=== PATIENT | female | born 1950 | race Two or more races ===

== ENCOUNTER 2024-10-31 15:05 | Emergency (ER) | payer OTHER, SELFPAY ==
--- NOTE | 2024-10-31 15:20 | PD.EDFMALE ---
ED Female Urogenital RME/HPI General Chief complaint: Weakness Stated complaint: WEAKNESS Time Seen by Provider: 10/31/24 15:16 Source: patient and EMS Arrival date/time: 10/31/24 15:05 Limitations: no limitations RME / HPI RME / HPI Narrative: 73-year-old female with a history of diabetes and hypothyroidism was brought in by EMS for 2-week history of generalized weakness and a 2-week history of dysuria. She denies any abdominal pain, nausea, vomiting. No diarrhea. No fevers or chills. No unilateral weakness or vision changes. No shortness of breath. No fevers or chills. No lower leg edema. She has no other acute complaints. Related Data Home Medications ?Medication ?Instructions ?Recorded ?Confirmed Levothyroxine * (SYNTHROID *) PO QDAY #0 tabs 11/07/16 metformin 500 mg tablet PO BIDAC #0 tabs 11/07/16 (Glucophage) Previous Rx's ?Medication ?Instructions ?Recorded cephalexin 500 mg capsule 500 mg PO TID 7 days #21 caps 10/31/24 Allergies Allergy/AdvReac Type Severity Reaction Status Date / Time Penicillins Allergy Unknown Verified 11/24/16 13:17 Review of Systems Review of Systems Systems Reviewed: All systems reviewed, normal except as documented ED Exam General Limitations: Present no limitations General appearance: Present alert and in no apparent distress Head Head exam: Present atraumatic Eye Eye exam: Present normal appearance, PERRL and EOMI ENT ENT exam: Present normal exam, normal oropharynx and mucous membranes moist Neck Neck exam: Present normal inspection, full ROM and trachea midline Chest Chest inspection: Present normal inspection and symmetric chest wall rise Respiratory Respiratory exam: Present normal lung sounds bilaterally Cardiovascular Cardiovascular exam: Present regular rate, normal rhythm and normal heart sounds Abdominal Exam Abdominal exam: Present soft and normal bowel sounds Extremities Exam Extremities exam: Present normal inspection and full ROM Back Exam Back exam: Present normal inspection and full ROM Neurological Exam Neurological exam: Present alert and oriented X3 Psychiatric Psychiatric exam: Present normal affect and normal mood Skin Skin exam: Present warm, dry, intact and normal color Course Quality Measures none Orders Category Date Time Status Beta Hydroxybutyrate Stat Lab 10/31/24 19:15 Completed CBC Stat Lab 10/31/24 16:16 Completed CMP [Comprehensive Metabolic Panel] Stat Lab 10/31/24 16:16 Completed HCG,Qualitative Serum Stat Lab 10/31/24 16:16 Completed Ketone [Beta Hydroxybutyrate] Stat Lab 10/31/24 16:16 Completed Lipase Stat Lab 10/31/24 16:16 Completed UA, C/S IF [Urinalysis, C/S if Indicated] Stat Lab 10/31/24 16:20 Completed Urine Culture Stat Lab 10/31/24 16:20 Received Potassium Chloride [K-Dur] Med 10/31/24 17:07 Discontinued 20 meq PO X1 ONE SODIUM CHLORIDE 0.9% (Popper) [Ns 0.9% (P)] 50 ml Med 10/31/24 19:29 Discontinued IV .STK-MED Sodium Chloride 0.9% 1000 ml [Ns] 1,000 ml Med 10/31/24 15:17 Discontinued IV 999 mls/hr cefTRIAXone [Rocephin] 1 gm Med 10/31/24 18:34 Discontinued SODIUM CHLORIDE 0.9% (Popper) [Ns 0.9% (P)] 50 ml IV X1 cefTRIAXone/D5w 1gm IV premix [Rocephin/D5w 1gm IV Med 10/31/24 19:32 Discontinued premix] 1 gm in 50 ml IV X1 Vital Signs Vital signs: Vital Signs Temperature 98.4 F 10/31/24 15:30 Pulse Rate 70 10/31/24 15:30 Blood Pressure 117/74 10/31/24 15:30 Pulse Oximetry (%) 93 L 10/31/24 15:30 Oxygen Delivery Method Room Air 10/31/24 15:30 Urogenital - Female MDM Narrative MDM Narrative:: 73-year-old female with a history of diabetes and hypothyroidism was brought in by EMS for 2-week history of generalized weakness and a 2-week history of dysuria. She denies any abdominal pain, nausea, vomiting. No diarrhea. No fevers or chills. No unilateral weakness or vision changes. No shortness of breath. No fevers or chills. No lower leg edema. She has no other acute complaints. On exam, patient is nontoxic-appearing no visible signs stress. Vital signs are stable. She has no abdominal pain, nausea, vomiting. Abdomen is soft and supple. She has no CVA tenderness. Workup was initiated has no leukocytosis. She has hemoglobin 11 hematocrit 33.1. Her sodium is 132, potassium 3.2. Her bicarb is 25.2. Creatinine 1.1. Glucose 194. However her initial beta hydroxy butyrate was 0.6. Patient received a 1 L bolus of normal saline in addition to ceftriaxone. Beta hydroxybutyrate was repeated and is now 1.0. Concerns at this is climbing early DKA. Hospitalist screener was contacted for admission consideration. Patient was seen by hospitalist team. We do not believe she is in DKA. Her beta-hydroxybutyrate may be elevated due to poor oral and food intake. Patient was reevaluated and remains nontoxic-appearing and in no visible signs stress. Vital signs remained stable throughout the ER course. Patient will be discharged in the time. She is agreeable to this. She will be discharged with a prescription of cephalexin. She agrees to increase oral hydration. Use the provided antibiotic as prescribed. Return to the emergency room at anytime for any worsening or emergent changes. Patient data External records reviewed:: EMS form Clinical information provided by:: patient and EMS Social determinants that could affect healthcare access:: none Patient has the following chronic illnesses:: Diabetes, hypothyroidism How is presenting disease/condition affected by chronic disease/condition?: exacerbated by Evaluation data The following diagnostics were reviewed and interpreted by me:: lab results Lab and/or radiology exams considered but not ordered:: n/a Interpretation Summary: Concerns for possible early DKA with her elevated beta hydroxybutyrate. UTI is present. Medications / Prescriptions Medications or Prescriptions considered but not ordered:: n/a Medication administrations:: Medication Administration History Discontinued Medications Sodium Chloride (Ns) 1,000 mls @ 999 mls/hr IV .Q1H1M ONE Stop: 10/31/24 16:17 Last Infusion: 10/31/24 18:44 Dose: Infused Documented By: Admin: 10/31/24 17:03 Dose: 999 mls/hr Documented By: ARF Ceftriaxone Sodium 1 gm/ (Sodium Chloride) 50 mls @ 100 mls/hr IV X1 ONE Stop: 10/31/24 19:03 Last Admin: 10/31/24 19:34 Dose: Not Given Documented By: RODY Non-Admin Reason: Duplicate Medication on eMAR Sodium Chloride (Ns 0.9% (P)) Confirm Administered Dose 50 mls @ ud IV .STK-MED ONE Stop: 10/31/24 19:30 Last Admin: 10/31/24 19:49 Dose: Not Given Documented By: RODY Non-Admin Reason: Discontinued Ceftriaxone Sodium/Dextrose (Rocephin/D5w 1gm Iv Premix) 1 gm in 50 mls @ 100 mls/hr IV X1 ONE Stop: 10/31/24 20:01 Last Infusion: 10/31/24 20:16 Dose: Infused Documented By: Admin: 10/31/24 19:46 Dose: 100 mls/hr Documented By: MM Potassium Chloride (Potassium Chloride 20 Meq Tabcr) 20 meq PO X1 ONE Stop: 10/31/24 17:08 Last Admin: 10/31/24 17:24 Dose: 20 meq Documented By: ARF see above Consultations Consultation(s) initiated? (list below): No Diagnosis Urogenital Female Differential Diagnosis: urinary tract infection, cystitis and other (dka ) Most likely diagnosis given after review of the tests above:: uti Admission Indicated Admission indicated?: not indicated Admission Request Was there a request for admission?: No Disposition Plan Disposition Plan: Discharge Discharge Attestation Discharge Attestation: The patient and all family members were given an opportunity to ask questions and understood the discharge instructions. Discharge instructions specifically effects, indications for sooner follow up or return to the emergency department, and the expected course of current diagnosis. Patient condition: Stable Discharge Plan Plan Patient Disposition: HOME (Self Care) Patient condition on transfer: Stable Prescriptions/Referrals Prescriptions/Med Rec: New cephalexin 500 mg capsule 500 mg PO TID 7 Days Qty: 21 0RF No Action metformin [Glucophage] 500 MG tablet PO BIDAC Qty: 0 Levothyroxine * (SYNTHROID *) 25 MCG tablet PO QDAY Qty: 0 Referrals: No Primary/Family,Physician [Primary Care Provider] - In 1 week Problem List Clinical Impression: Acute UTI Patient/Caregiver Discharge Instructions Education Materials: ED CYSTITIS Female Adult Additional Instructions: - Increase oral hydration. - Use the provided antibiotic as prescribed. - Please return to the emergency room at anytime for any worsening or emergent changes. Print Language: Yoruba Stand Alone Forms: Natalie Award Info., Patient Portal Info Letter
[2024-10-31 15:30] VITALS: BP 117/74; PULSE 70; TEMP 36.9; O2SAT 93; BMI 22.6
[2024-10-31 16:35] LABS: Collection Type, Urine Voided
[2024-10-31 16:42] LABS: Basophils # (Auto) 0.1 Thou/mm3 (0.0-0.2); Basophils % (Auto) 0 % (0-2.5); Eosinophils # (Auto) 0.0 Thou/mm3 (0.0-0.5); Eosinophils % (Auto) 0 % (0-10); Hematocrit 33.1 % (36.0-46.0); Hemoglobin 11.0 g/dL (12.0-16.0); Immature Granulocytes Auto 0.15 Thou/mm3 (0.00-0.00); Lymphocytes # (Auto) 0.7 Thou/mm3 (1.0-4.8); Lymphocytes % (Auto) 6 % (10-50); Mean Corpuscular HGB Conc 33.2 g/dl (31.0-37.0); Mean Corpuscular Hemoglobin 23.4 pg (25.0-35.0); Mean Corpuscular Volume 70 fL (80-100); Monocytes # (Auto) 1.2 Thou/mm3 (0.0-0.8); Monocytes % (Auto) 10 % (0-12); Neutrophils # (Auto) 9.8 Thou/mm3 (1.8-7.7); Neutrophils % (Auto) 82 % (37-80); Nucleated Red Blood Cell # 0.00 Thou/mm3 (0.00-0.00); Nucleated Red Blood Cell % 0 /100 WBC (0); Platelet Count 147 Thou/mm3 (140-440); RDW Standard Deviation 35.0 fL (36.4-46.3); Red Blood Count 4.71 Miln/mm3 (4.00-5.20); White Blood Count 11.9 Thou/mm3 (3.6-11.0)
[2024-10-31 16:44] LABS: Beta Hydroxybutyrate 0.6 mmol/L (<0.6)
[2024-10-31 16:51] LABS: HCG,Qualitative Serum Negative
[2024-10-31 17:00] LABS: Alanine Aminotransferase 40 U/L (10-49); Albumin, Serum 4.0 gm/dL (3.4-4.8); Albumin/Globulin Ratio 1.5 (1.2-2.2); Alkaline Phosphatase 107 U/L (46-116); Anion Gap 13 (7-16); Aspartate Amino Transferase 34 U/L (0-34); BUN/Creatinine Ratio 17 Ratio (12-20); Bilirubin,Total 1.0 mg/dL (0.3-1.2); Blood Urea Nitrogen 19 mg/dL (9-23); Calcium 9.8 mg/dL (8.3-10.6); Calcium (Corrected) 9.8 mg/dL (8.5-10.1); Carbon Dioxide 25.2 mMol/L (20.0-31.0); Chloride 94 mMol/L (98-107); Creatinine (Component) 1.1 mg/dL (0.6-1.3); Globulin 2.7 gm/dL (2.3-3.5); Glucose 194 mg/dL (74-106); Lipase 23 U/L (12-53); Osmolality,Calculated 271 (275-295); Potassium 3.2 mMol/L (3.4-5.1); Sodium 132 mMol/L (136-145); Total Protein 6.7 gm/dL (5.7-8.2); eGFR 53 See Note
[2024-10-31] MEDS: SODIUM CHLORIDE 0.9% 1000 ML 1,000 ML 999 ML IV (17:03)
[2024-10-31 17:19] LABS: Bilirubin,Urine 1+ (Negative); Blood,Urine Negative (Negative); Color,Urine Drk-Yellow (Lt Yel-Yel); Glucose, Urine 4+ (Negative); Ketones,Urine 1+ (Negative); Leukocyte Esterase,Urine Positive (Negative); PH,Urine 6.5 (5.0-7.0); Protein,Urine Trace (Neg - Trace); RBC,Urine 3 /hpf (0-3); Specific Gravity,Urine 1.025 (1.001-1.035); Squamous Epithelial Cell,Urine 1 /hpf (0-5); Urobilinogen,Urine 2.0 mg/dL (0.0-1.0); WBC,Urine 197 /hpf (0-5)
[2024-10-31 17:25] LABS: Culture Indicated,Urine Yes
[2024-10-31 17:26] LABS: Clarity,Urine Hazy (Clear/Hazy); Nitrite,Urine Negative (Negative)
[2024-10-31 18:43] VITALS: BP 116/57; PULSE 67; RESP 20; TEMP 37.4; O2SAT 95
[2024-10-31 19:32] LABS: Beta Hydroxybutyrate 1.0 mmol/L (<0.6)
[2024-10-31] MEDS: cefTRIAXone/D5w 1gm IV premix 1 GM/50 ML BAG IV (19:46)
[2024-10-31 22:00] VITALS: PULSE 77; RESP 18; TEMP 36.9; O2SAT 94
--- NOTE | 2024-10-31 22:38 | ESCONSULT_ITS ---
<Statement entered by Alistair Sheehan MD - 11/01/24 08:54> I have discussed and was present for the essential components of the history, physical examination, diagnosis, and treatment plan with the resident. I agree with the patient's care as documented by the resident and amended herein by me. Alistair Sheehan MD FACP. HPI Data of Consult Consult date: 10/31/24 Requesting Physician: Harpal Truong Attending Provider: Dr. Alistair Sheehan Primary Care Provider: Physician No Primary/Family Consult Narrative Reason for consult: Consult for potential admission History of present illness: 73 y/o F with PMHx significant for diabetes, hypothyroidism presents with chief complaint of weakness and dysuria x 4 days. Patient reports that she has had dysuria with increased urinary frequency and urgency for past 4 days, has had progressive weakness during this time. Patient has also had poor appetite with mild nausea, but denies vomiting. Patient also denies fevers, chills, shortness of breath. Does endorse abdominal pain, on exam pain is localized to the suprapubic region. Urinalysis shows UTI with 197 WBCs. Hospitalist team consulted due to concern for early DKA given beta hydroxybutyrate increased from 0.6-1.0. However, patient glucose level 194, serum bicarbonate 25.2. Patient received 1 L bolus normal saline and 1 g Rocephin in the ED, at time of exam patient already was feeling better, with increased appetite. Not concern for DKA at this time, patient can be treated with p.o. antibiotics, does not meet criteria for admission. ED COURSE: Labs significant for: WBC 11.9, potassium 3.2, bicarb 25.2, BUN 19, creatinine 1.1, EGFR 53. Anion gap 19. Glucose 104. Hydroxybutyrate 1.0. Urinalysis showed 197 WBCs. Patient received 20 mEq potassium p.o., 1 g Rocephin, 1 L bolus normal saline. Vitals remained stable during ED stay. PMH: Diabetes, hypothyroidism PSH: None SH: Denies alcohol, tobacco, illicit drug use Allergies:?Penicillins Medications: Metformin, Jardiance, Synthroid cc:: cc: Review of Systems Review of Systems Systems Reviewed: All systems reviewed, normal except as documented Past Medical History Past Medical History Comments PMH COMMENT: PMH: Diabetes, hypothyroidism PSH: None SH: Denies alcohol, tobacco, illicit drug use Allergies:?Penicillins Medications: Metformin, Jardiance, Synthroid Exam Vital Signs Temp Pulse Resp BP Pulse Ox O2 Del Method 99.3 F 67 20 116/57 L 95 Room Air 10/31/24 18:43 10/31/24 18:43 10/31/24 18:43 10/31/24 18:43 10/31/24 18:43 10/31/24 18:43 Narrative Exam PE: Gen: Well-developed and well-nourished. HEENT: NCAT, PERRLA, EOMI, MMM, anicteric conjunctivae. CVS: normal S1 and S2. RRR. No M/R/G. Resp: CTA B/L. No rhonchi, rales, crackles or wheezing. Abd: soft non-distended. BS+ in all 4 quadrants. Suprapubic tenderness. MSK: Good ROM in BUE & BLE. No edema or rash. Neuro: CN II-XII grossly intact. Strength 5/5 in BUE & BLE. Alert and oriented x3. Psych: appropriate mood and affect. Results Labs 10/31/24 16:16 10/31/24 16:16 Labs: Short CBC 10/31/24 Range/Units 16:16 WBC 11.9 H (3.6-11.0) Thou/mm3 Hgb 11.0 L (12.0-16.0) g/dL Hct 33.1 L (36.0-46.0) % Plt Count 147 (140-440) Thou/mm3 BMP 10/31/24 16:16 Sodium 132 L Potassium 3.2 L Chloride 94 L Carbon Dioxide 25.2 BUN 19 Creatinine 1.1 Glucose 194 H Calcium 9.8 Liver Function 10/31/24 Range/Units 16:16 Total Bilirubin 1.0 (0.3-1.2) mg/dL AST 34 (0-34) U/L ALT 40 (10-49) U/L Alkaline Phosphatase 107 (46-116) U/L Albumin 4.0 (3.4-4.8) gm/dL Urine 10/31/24 Range/Units 16:20 Urine Color Drk-Yellow A (Lt Yel-Yel) Urine Clarity Hazy (Clear/Hazy) Urine pH 6.5 (5.0-7.0) Ur Specific [place] 1.025 (1.001-1.035) Urine Protein Trace (Neg - Trace) Urine Glucose (UA) 4+ A (Negative) Quality Measures Quality Measures none Advance care planning discussed with:: patient and spouse Medications Home Medications and Allergies Home Medications ?Medication ?Instructions ?Recorded ?Confirmed ?Type Levothyroxine * (SYNTHROID *) PO QDAY #0 tabs 11/07/16 History metformin 500 mg tablet PO BIDAC #0 tabs 11/07/16 H istory (Glucophage) Allergies Allergy/AdvReac Type Severity Reaction Status Date / Time Penicillins Allergy Unknown Verified 11/24/16 13:17 Visit Medications Discontinued Medications Sodium Chloride (Ns) 1,000 mls @ 999 mls/hr IV .Q1H1M ONE Stop: 10/31/24 16:17 Last Infusion: 10/31/24 18:44 Dose: Infused Ceftriaxone Sodium 1 gm/ (Sodium Chloride) 50 mls @ 100 mls/hr IV X1 ONE Stop: 10/31/24 19:03 Last Admin: 10/31/24 19:34 Dose: Not Given Ceftriaxone Sodium/Dextrose (Rocephin/D5w 1gm Iv Premix) 1 gm in 50 mls @ 100 mls/hr IV X1 ONE Stop: 10/31/24 20:01 Last Infusion: 10/31/24 20:16 Dose: Infused Potassium Chloride (Potassium Chloride 20 Meq Tabcr) 20 meq PO X1 ONE Stop: 10/31/24 17:08 Last Admin: 10/31/24 17:24 Dose: 20 meq Assessment & Plan Plan 73 y/o F with PMHx significant for diabetes, hypothyroidism presents with chief complaint of weakness and dysuria x 4 days, hospitalist team consulted for possible admission for early DKA. #UTI, nonseptic Patient presented with chief complaint of weakness, dysuria, increased urinary frequency and urge x 4 days. Patient vital stable, afebrile in the ED. Leukocytosis 11.9, urinalysis showed 197 WBCs. Patient received 1 g Rocephin, 1 L bolus normal saline, reported symptomatic improvement. - Recommend discharge on p.o. Keflex x 7 days - Urine cultures pending, update patient if results are resistant - Recommend patient return to ED if symptoms worsen or do not resolve - Encourage oral hydration - Tylenol as needed #Diabetes #Beta-hydroxybutyrate elevation Patient has history of diabetes. On presentation to ED, beta hydroxybutyrate 0.6. Elevated to 1.0 on recheck. Anion gap 19, serum bicarbonate 25.2, glucose 187. Patient endorses mild nausea without vomiting. Moist mucous membranes. Patient has had poor appetite for past few days, decreased intake of food. No concern for DKA at this time, patient safe for discharge from ED. - Safe for discharge - Managed UTI as above - Continue home diabetes management #Hypothyroidism Patient history as stated. - Continue home management DVT prophylaxis: None GI prophylaxis: None Diet: Carb consistent Lines: Peripheral IV Code status: Full code Plan of care discussed with attending Dr. Sheehan. Modesto Tapia MD PGY?2
== END 2024-10-31 22:00 | disposition home or self-care (01) ==
PROVIDERS: Physician Assistant Medical; Emergency Provider Emergency Medicine
DX: N39.0 Urinary tract infection, site not specified (principal); E11.9 Type 2 diabetes mellitus without complications; E03.9 Hypothyroidism, unspecified
CPT/HCPCS: 36415; 80053; 81001; 82010; 83690; 84703; 85025; 87077; 87086; 87186; 96361; 96365; 99283; J0696; J7030; A9270